=== PATIENT | female | born 1930 | race Caucasian/White ===

== ENCOUNTER 2017-03-24 21:57 | Inpatient (IN) | payer MEDICARE, OTHER ==
[~2017-03-24] VITALS: Ht 167.6 cm; Wt 64.4 kg
[2017-03-24] MEDS ORDERED: LEVOTHYROXINE25 MCG PO (22:25)
[2017-03-24] MEDS ORDERED: BUPROPION XL150 MG PO (22:26)
[2017-03-24] MEDS ORDERED: ESCITALOPRAM OXA5 MG PO (22:26)
[2017-03-24] MEDS ORDERED: TRIMETHOPRIM100 MG PO (22:26)
[2017-03-24] MEDS ORDERED: PROPRANOLOL HCL80 MG PO (22:27)
[2017-03-24] MEDS ORDERED: ROSUVASTATIN CAL5 MG PO (22:27)
[2017-03-24] MEDS ORDERED: DICLOFENAC SOD100 G1 TOP (22:28)
[2017-03-24] MEDS ORDERED: RANITIDINE HCL75 MG PO (22:29)
--- NOTE | 2017-03-25 01:10 | NUR ---
PT ARRIVED TO TO RM #[id number] VIA STRETCHER FROM ED. TRANSFERRED TO BED. INCONTIENT OF STOOL. ATTENDS CHANGED, BARRIER CREAM APPLIED TO TESSA AREA, BUTTOCKS AND RASH ON LOWER ABD. LARGE AMOUNT OF LIQUID BROWN/GREEN STOOL NOTED. ADMISSION AND ASSESSMENT COMPLETE. PT POOR HISTORIAN DUE TO DEMENTIA AND ALTERED MENTAL STATUS. GENERALIZED WEAKNESS NOTED. NO FURTHER NEEDS AT THIS TIME. CALL LIGHT EDUCATION DONE. CALL LIGHT IN REACH.
--- NOTE | 2017-03-25 03:42 | NUR ---
IN TO CHECK ON PT, PT APPEARS TO BE SLEEPING. IVF INFUSING. NO APPARENT DISTRESS NOTED. RR EVEN AND UNLABORED. CALL LIGHT IN REACH.
--- NOTE | 2017-03-25 05:00 | NUR ---
DR. PALACIOS IN TO SEE PT. NEW ORDERS GIVEN. PT INCONTIENT OF MEDIUM LIQUID STOOL. STOOL SAMPLE COLLECTED AND SENT TO LAB. ATTENDS CHANGED. NOTED A DIME SIZED BLANCHABLE ULER ON COCCYX. BARRIER CREAM APPLIED. ATTENDS CHANGED. NO FURTHER NEEDS AT THIS TIME. CALL LIGHT IN REACH.
--- NOTE | 2017-03-25 09:30 | NUR ---
PT AWAKE IN BED. BOOSTED AND REPOSITIONED TO BACK. PT ASSISTED TO EAT BREAKFAST DUE TO CONTRATURED HANDS. PT ATE APPROX 25% OF SOFT BREAKFAST. ORIENTED TO SELF. REQUIRES REORIENTATION TO SITUATION FREQUENTLY. CALL LIGHT WITHIN REACH. PLACED IN POSITION OF COMFORT AFTER EATING.
--- NOTE | 2017-03-25 10:30 | NUR ---
PT IS SITTING UP IN BED WITH CALL LIGHT IN REACH. PT WAS INCONTIENT OF URINE AND WAS CHANGED. PT'S HANDS AND FACE WERE CLEANED WITH A WARM WASH CLOTH. PT DID NOT NEED ANYTHING ELSE
--- NOTE | 2017-03-25 11:30 | NUR ---
PT INCONTINENT OF LIQUID STOOL. ATTENDS CHANGED, PT CLEANED THOROUGHLY. BARRIER CREAM APPLIED TO TESSA AREA. PT REPOSITIONED TO LEFT SIDE. CALL LIGHT WITHIN REACH.
--- NOTE | 2017-03-25 14:30 | NUR ---
PT IS RESTING IN BED SAFELY WITH CALL LIGHT IN REACH. PT WAS INCONTINENT OF STOOL AND WAS CHANGED
--- NOTE | 2017-03-25 14:30 | NUR ---
PT INCONTINENT OF LIQUID STOOL. ATTENDS CHANGED. PT REPOSITIONED IN BED.
--- NOTE | 2017-03-25 16:09 | NUR ---
PT AWAKE IN BED VISITING WITH DAUGHTER. ATTENDS CHANGED AND REPOSITIONED IN BED. CALL LIGHT WITHIN REACH. PT REMAINS ORIENTED TO SELF AND DAUGHTER ONLY.
--- NOTE | 2017-03-25 17:45 | NUR ---
PT INCONTINENT OF LIQID STOOL. STOOL SAMPLE OBTAINED. PT CLEANED THOROUGHLY, BARRIER CREAM APPLIED TO TESSA AREA. PT ASSISTED TO EAT DINNER, ONLY ATE A FEW BITES. PT REPOSITIONED. CALL LIGHT WITHIN REACH.
--- NOTE | 2017-03-25 18:44 | NUR ---
PT IS SITTING UP IN BED WITH CALL LIGHT IN REACH. PT ASKED FOR MORE CRANBERRY JUICE
--- NOTE | 2017-03-25 19:05 | NUR ---
BEDSIDE REPORT RECEIVED FROM OFFGOING NURSE. PT RESTING IN BED WITH EYES CLOSED
--- NOTE | 2017-03-25 21:32 | NUR ---
PT ASSESSMENT COMPLETED. PT DENIES PAIN OR NAUSEA. DISORIENTED X 4. ATTENDS IN PLACE. PT TO BE CHANGED AND TURNED. ASSISTED PT WITH A DRINK OF WATER. WARM BLANKET PROVIDED. PT DENIES OTHER NEEDS. CALL LIGHT WITHIN REACH.
--- NOTE | 2017-03-25 22:00 | NUR ---
PT LYING IN BED AWAKE. REPORTS THAT SHE IS HUNGRY. PT ATE 2-3 BITES OF [place] AND CHEESE, STATES THAT SHE IS NO LONGER HUNGRY. PT DENIES OTHER NEEDS AT THIS TIME. CALL LIGHT WITHIN REACH.
--- NOTE | 2017-03-26 00:05 | NUR ---
PT RESTING IN BED WITH EYES CLOSED. RESPIRATIONS EVEN AND UNLABORED. PT APPEARS TO BE SLEEPING. PT DOES NOT WAKE WHEN SPECIAL EFFECTS TECHNICIAN ENTERS ROOM. CALL LIGHT WITHIN REACH.
--- NOTE | 2017-03-26 02:30 | NUR ---
PT RESTING IN BED WITH EYES CLOSED. RESPIRATIONS EVEN AND UNLABORED. PT APPEARS TO BE SLEEPING. CALL LIGHT WITHIN REACH.
--- NOTE | 2017-03-26 03:26 | NUR ---
PT ASSESSMENT COMPLETE. PT RESTING WITH EYES CLOSED. WAKES EASILY BUT DOES NOT OPEN HER EYES. ABD REMAINS SLIGHTLY DISTENDED, NO TENDERNESS TO PALPATION. BT'S ACTIVE. PT REPOSITIONED TO L SIDE AND PROPPED WITH PILLOW. CALL LIGHT WITHIN REACH.
--- NOTE | 2017-03-26 05:45 | NUR ---
PT'S ATTENDS CHANGED. PT REPOSITIONED TO R SIDE AND PROPPED WITH PILLOW. PT TOLERATED WELL. DENIES FURTHER NEEDS. CALL LIGHT WITHIN REACH.
--- NOTE | 2017-03-26 06:38 | NUR ---
PT SLEPT MAJORITY OF SHIFT. NO CO PAIN, NAUSEA, SOB. BT'S ACTIVE. ABD NOT TENDER TO PALPATION THIS SHIFT. PT CONTINUES TO HAVE LOOSE STOOL, X 2 THIS SHIFT. INCONTINENT OF BLADDER AND BOWEL, ATTENDS IN PLACE. BARRIER CREAM/WIPES FOR TESSA AREA AND BUTTOCK REDNESS. PT BEDBOUND. TURN Q 2. ASSIST WITH FEEDING. FIELD START REMAINS IN PLACE. D5LR@ 100.
--- NOTE | 2017-03-26 07:54 | NUR ---
REPORT RECIEVED FROM KATIE SIMMONS. PT ASLEEP IN BED ATT.
--- NOTE | 2017-03-26 09:45 | NUR ---
CARE ASSUMED OF PT, RECIEVED FACE TO FACE REPORT FROM CARLITO Camargo R.N. PT RESTING IN BED ON LEFT SIDE. ASSISTED PT TO TAKE A FEW BITES OF BREAKFAST. PT ORIENTED TO SELF ONLY. DENIES PAIN, NAUSEA, OR OTHER CONCERNS. ATTENDS CLEAN AND DRY AT THIS TIME. ASSISTED PT TO DRINK SOME ORANGE JUICE AND WATER. CALL LIGHT WITHIN REACH ALTHOUGH PT DOES NOT USE CALL BUTTON APPROPRIATELY. BED RAILS UP, BED IN LOWEST POSITION.
--- NOTE | 2017-03-26 10:30 | NUR ---
FIELD START IV DUE FOR ROUTINE ROTATION AND LEAKING. IV DC'D. NEW 22G IV STARTED IN RIGHT FOREARM. IV FLUIDS INFUSING WELL. PT INCONTINENT OF BOWEL AND BLADDER. ATTENDS AND LINENS CHANGED. BARRIER CREAM APPLIED TO TESSA AREA. AM CARES COMPLETED. FACE WASHED, DENTURE AND ORAL CARE DONE, BED BATH. PT REPOSITIONED TO LEFT SIDE. HEEL PROTECTORS IN PLACE.
[2017-03-26] MEDS ORDERED: OMEPRAZOLE20 MG PO (11:15)
[2017-03-26] MEDS ORDERED: RANITIDINE HCL150 MG PO (11:17)
--- NOTE | 2017-03-26 11:18 | NUR ---
MED REC COMPLETE WITH [facility] REFILL HISTORY.
--- NOTE | 2017-03-26 12:05 | NUR ---
PT REPOSITINED AND ATTENDS CHANGED. INCONTINENT OF SMALL SOFT STOOL. PT GIVEN SIPS OF WATER. IV INFUSING WNL.
--- NOTE | 2017-03-26 12:54 | NUR ---
PT SITTING UP IN BED. TRAY SET UP FOR PT AND PT ABLE TO EAT INDPENDENTLY. PT HAS LIMITED APPETITE AND ONLY EATS A FEW BITES OF EACH MEAL. GIVEN ENSURE.
--- NOTE | 2017-03-26 14:15 | NUR ---
PT ATTENDS CHANGED. PT INCONTINENT OF URINE AND HAD SMALL SMEAR OF SOFT BROWN STOOL. PT REPOSITIONED TO RIGHT SIDE. PT GIVEN SIPS OF WATER.
--- NOTE | 2017-03-26 15:34 | NUR ---
PATIENT AWAKE IN BED. AM CARE. PICKED UP ROOM. EMPTYED GARBAGE. CHANGED GOWN. CHANGED HER ATTEND. CHANGED CHUK AND DRAW SHEET. PATIENT HAS CALL LIGHT IN REACH.
--- NOTE | 2017-03-26 16:30 | NUR ---
PT AWAKE IN BED. ATTENDS CHANGED. PT REPOSITINED. HAIR SHAMPOOED AND FACE WASHED.
--- NOTE | 2017-03-26 17:42 | NUR ---
ASSISTED PT TO EAT A SMALL AMOUNT OF DINNER. ORAL CARE COMPLETED.
--- NOTE | 2017-03-26 18:58 | NUR ---
ATTENDS CHANGED. PT REPOSITIONED.
--- NOTE | 2017-03-26 19:10 | NUR ---
BEDSIDE REPORT RECEIVED FROM OFFGOING RN. PT RESTING WITH EYES CLOSED. CALL LIGHT WITHIN REACH.
--- NOTE | 2017-03-26 20:40 | NUR ---
PT ASSESSMENT COMPLETE. PT DISORIENTED X 3. PLEASANTLY CONFUSED. PT DENIES PAIN OR NAUSEA. BT'S ACTIVE. PT DENIES ABD TENDERNESS. ATTENDS IN PLACE FOR INCONTINENCE. HEEL PROTECTORS PRESENT. PT DENIES NEEDS AT THIS TIME. CALL LIGHT WITHIN REACH.
--- NOTE | 2017-03-26 23:25 | NUR ---
PUT PILLOW ON HER LEFT SIDE. CLEANED UP THE TABLE. REFILLED ICE WATER. CALL LIGHT WITHIN REACH.
--- NOTE | 2017-03-27 00:45 | NUR ---
PT RESTING IN BED WITH EYES CLOSED. RESPIRATIONS EVEN AND UNLABORED. PT APPEARS TO BE SLEEPING. CALL LIGHT WITHIN REACH.
--- NOTE | 2017-03-27 02:05 | NUR ---
PT RESTING IN BED WITH EYES CLOSED. RESPIRATIONS EVEN AND UNLABORED. PT DOES NOT WAKE WHEN SALES DEVELOPMENT COORDINATOR ENTERS THE ROOM. CALL LIGHT WITHIN REACH.
--- NOTE | 2017-03-27 02:55 | NUR ---
PT ASSESSMENT COMPLETE. UNCHANGED FROM PREVIOUS ASSESSMENTS. PT REPOSITIONED AND PROPPED WITH PILLOWS; TOLERATED WELL. PT DENIES FURTHER NEEDS. CALL LIGHT WITHIN REACH.
--- NOTE | 2017-03-27 05:15 | NUR ---
PT RESTING WITH EYES CLOSED. RESPIRATIONS EVEN AND UNLABORED. PT APPEARS TO BE SLEEPING. CALL LIGHT WITHIN REACH.
--- NOTE | 2017-03-27 05:28 | NUR ---
PT SLEPT MAJORITY OF SHIFT. NO C/O PAIN. NO ABD TENDERNESS. BT'S ACTIVE. INCONTINENT OF BLADDER AND BOWEL. ATTENDS IN PLACE. TURN Q 2. TESSA AREA REDNESS, APPLY BARRIER CREAM/WIPES. BEDBOUND. CONTRACTURES, ASSIST WITH FEEDING. IV SL EXCEPT ABX.
--- NOTE | 2017-03-27 07:29 | NUR ---
BEDSIDE REPORT RECEIVED FROM IRIS WILSON. PT AWAKE SITTING UP IN BED. COFFEE PROVIDED TO PT PER REQUEST. WHITEBOARD UPDATED. CEFEPIME INFUSING NOW. WILL S/L WHEN COMPLETE. NO COMPLAINTS THIS MORNING.
--- NOTE | 2017-03-27 10:56 | NUR ---
NURSE AND I CHANGED THE PATIENT AND REPOSITION ON BACK.
--- NOTE | 2017-03-27 13:18 | NUR ---
PT ABLE TO EAT MEAL INDEPENDENTLY AFTER BEING SET UP WITH FOOD CHOPPED AND IN REACH. ATE 80% OF LUNCH. ABX INFUSING NOW.
--- NOTE | 2017-03-27 15:18 | NUR ---
ALBERT AND I TURNED PATIENT ON LEFT SIDE AT 3:15PM. ALBERT ALSO DID THE BED BATH AND CHANGED HER.
--- NOTE | 2017-03-27 15:32 | NUR ---
PT AWAKE IN BED. CHANGED AND GAVE A BEDBATH. FRESH ICE WATER AND COFFEE. LINEN CHANGE.
--- NOTE | 2017-03-27 18:00 | NUR ---
PULL PATIENT UP IN BED. PROPED HER STRAIGHT UP IN BED. ASSISTED PATIENT WITH DINNER. WASHED PATIENT'S FACE. CALL BUTTON IN REACH. PROCEDURE TECH IN ROOM.
--- NOTE | 2017-03-27 18:33 | NUR ---
TURN Q2. CEFEPIME. SWING BED 7 DAYS FOR ABX. INCONTINENT. SOFT STOOL. NEEDS HELP WITH FEEDING.
--- NOTE | 2017-03-27 19:20 | NUR ---
BEDSIDE REPORT RECEIVED FROM OFFGOING RN. PT BEING CHANGED AND REPOSITIONED BY BUSINESS DEVELOPMENT RECRUITER'S.
--- NOTE | 2017-03-27 21:19 | NUR ---
PT ASSESSMENT COMPLETE. PT DENIES PAIN, NAUSEA, OR SOB. LUNG SOUNDS CLEAR. BT'S ACTIVE, NO C/O ABD TENDERNESS. ATTENDS IN PLACE FOR CHRONIC INCONTINENCE. PT REMAINS PLEASANTLY CONFUSED, ORIENTED TO SELF ONLY. PT DENIES NEEDS AT THIS TIME. CALL LIGHT WITHIN REACH.
--- NOTE | 2017-03-27 23:55 | NUR ---
PT RESTING WITH EYES CLOSED, RESPIRATIONS EVEN AND UNLABORED. PT APPEARS TO BE SLEEPING. CALL LIGHT WITHIN REACH.
--- NOTE | 2017-03-28 02:10 | NUR ---
PT RESTING WITH EYES CLOSED. WAKES EASILY. REPOSITIONED TO L SIDE, PROPPED WITH PILLOW. PT FALLS BACK TO SLEEP EASILY.
--- NOTE | 2017-03-28 04:34 | NUR ---
PT RESTING IN BED WITH EYES CLOSED, WAKES EASILY. PT TURNED TO OPPOSITE SIDE AND PROPPED WITH PILLOW. TOLERATED WELL. PT FALLS BACK TO SLEEP EASILY. CALL LIGHT WITHIN REACH.
--- NOTE | 2017-03-28 04:58 | NUR ---
UNEVENTFUL SHIFT. BEDBOUND, TURN Q 2. INCONTINENT OF BLADDER AND BOWEL. ATTENDS IN PLACE. SOFT STOOLS. BARRIER CREAM/WIPES TO TESSA AREA. ASSIST WITH FEEDING. IV SL.
== END 2017-03-28 12:40 | disposition swing bed (61) | DRG 689 ==
LOC: ED 21:57 → MS 21:58
PROVIDERS: ADMIT Internal Medicine
DX: N39.0 Urinary tract infection, site not specified (principal); G93.41 Metabolic encephalopathy; F02.81 Dementia in other diseases classified elsewhere, unspecified severity, with behavioral disturbance; I69.351 Hemiplegia and hemiparesis following cerebral infarction affecting right dominant side; B96.20 Unspecified Escherichia coli [E. coli] as the cause of diseases classified elsewhere; E86.0 Dehydration; I48.0 Paroxysmal atrial fibrillation; I12.9 Hypertensive chronic kidney disease with stage 1 through stage 4 chronic kidney disease, or unspecified chronic kidney disease; N18.3 Chronic kidney disease, stage 3 (moderate); Z87.440 Personal history of urinary (tract) infections; E78.5 Hyperlipidemia, unspecified; E03.9 Hypothyroidism, unspecified; R73.03 Prediabetes; G25.0 Essential tremor; Z66 Do not resuscitate; K52.9 Noninfective gastroenteritis and colitis, unspecified; G31.83 Neurocognitive disorder with Lewy bodies; Z99.3 Dependence on wheelchair
CPT/HCPCS: 36415; 80053; 81001; 83735; 83993; 84133; 84302; 85025; 85651; 86140; 87045; 87046; 87077; 87088; 87147; 87177; 87186; 87205; 87209; 87493; 92610; 97162; 97165; J0692; J0696; J1650; J2270; J2405; J3475; J7030; J7040; J7120

== ENCOUNTER 2017-03-28 12:40 | Inpatient (IN) | payer MEDICARE, OTHER ==
[~2017-03-28] VITALS: Ht 167.6 cm; Wt 67.9 kg
[~2017-03-28 12:40] MED LIST: BUPROPION XL150 MG PO; DICLOFENAC SOD100 G1 TOP; ESCITALOPRAM OXA5 MG PO; LEVOTHYROXINE25 MCG PO; OMEPRAZOLE20 MG PO; PROPRANOLOL HCL80 MG PO; RANITIDINE HCL150 MG PO; RANITIDINE HCL75 MG PO; ROSUVASTATIN CAL5 MG PO; TRIMETHOPRIM100 MG PO
--- NOTE | 2017-03-28 17:22 | NUR ---
UNEVENTFUL DAY. CHANGED STATUS TO SWING BED. TURN Q2. WATCH COCCYX FOR BREAKDOWN. INCONTINENT. SEVERAL BMs TODAY. CEFEPIME FOR ECOLI IN UTI. SALINE LOCK.
--- NOTE | 2017-03-28 18:41 | NUR ---
GAVE BED BATH AND SHAMPOOED HAIR. TURNING HER EVERY 2HRS.
--- NOTE | 2017-03-28 19:20 | NUR ---
PT RESTING IN BED WITH EYES OPEN. PT REMAINS PLEASANTLY CONFUSED. DENIES NEEDS AT THIS TIME. CALL LIGHT WITHIN REACH.
--- NOTE | 2017-03-28 20:44 | NUR ---
PATIENT VERY DISORIENTED. SHE STATES THAT NO ONE HAS COME TO SEE HER FOR 16 HOURS. I GOT HER FRESH ICE WATER AND WARM BLANKETS. PATIENT DID NOT NEED CHANGED AT THIS TIME.
--- NOTE | 2017-03-28 23:26 | NUR ---
PT ASSESSMENT COMPLETE. PT DISORIENTED X4. PLEASANTLY CONFUSED. REPORTS THAT HER DAUGHTER HAS NOT COME TO SEE HER, EVEN THOUGH SHE PROMISED SHE WOULD. PT DENIES PAIN. STATES THAT SHE WOULD LIKE TO STAY UP AND WATCH TV FOR A WHILE. DENIES NEEDS AT THIS TIME. CALL LIGHT WITHIN REACH.
--- NOTE | 2017-03-29 01:54 | NUR ---
PATIENT IN BED SLEEPING
--- NOTE | 2017-03-29 03:11 | NUR ---
PT REPOSITIONED TO L SIDE AND PROPPED WITH PILLOW. PT TOLERATED WELL.
--- NOTE | 2017-03-29 04:49 | NUR ---
UNEVENTFUL SHIFT. PT SLEPT MAJORITY OF SHIFT. TURN Q 2 WHILE IN BED. APPLY BARRIER CRAM TO TESSA AREA. PT INCONTINENT OF BLADDER AND BOWEL, ATTENDS IN PLACE. PT CONTINUES TO HAVE SOFT STOOL. ORDER FOR PT TO BE UP IN CHAIR BID. IV SL. 2 PA.
--- NOTE | 2017-03-29 06:15 | NUR ---
PT RESTING WITH EYES CLOSED, WAKES EASILY. REMAINS DROWSY. PT TURNED AND REPOSITIONED. PT TOLERATED WELL.
--- NOTE | 2017-03-29 07:30 | NUR ---
RECIEVED REPORT FROM DAY SHIFT NURSE. PT RESTING IN BED. PT DENIES NEEDS. CALL CHAVEZ IN REACH.
--- NOTE | 2017-03-29 09:00 | NUR ---
PATIENT AWAKE IN BED. AM CARE CHANGED SHEETS AND GOWN. BED BATH. FRESH ICE WATER AND COFFEE. EMPTYED GARBAGE. PICKED UP ROOM.
--- NOTE | 2017-03-29 10:34 | NUR ---
PT SITTING UP IN BED. STATES SHE FEEL NAUSEOUS. ZOFRAN ADMINISTERED. PT STATES SHE ATE A BIG BREAKFAST. #22 IN L ARM LEAKING. IV SITE REMOVED.
--- NOTE | 2017-03-29 11:00 | NUR ---
PT RESTING IN BED. AT BEDSIDE. PT DENIES DIZZINESS. STATES HER PAIN IS TOLERABLE. DENIES NEEDS. CALL CHAVEZ IN REACH.
--- NOTE | 2017-03-29 12:18 | NUR ---
MED REC COMPLETE WITH [facility] REFILL HSITORY.
--- NOTE | 2017-03-29 12:45 | NUR ---
ORDERED LUNCH FOR PT. REPOSITIONED. CHECKED FOR EPISODE OF INCONT.
--- NOTE | 2017-03-29 14:35 | NUR ---
PT AWAKE IN BED. TOOK LUNCH TRAY. CHANGED GOWN.
--- NOTE | 2017-03-29 15:00 | NUR ---
PT RESTING IN BED. DENIES NEEDS. CALL CHAVEZ IN REACH.
--- NOTE | 2017-03-29 17:00 | NUR ---
REPOSITIONED PT ON R SIDE. CHANGED PT FOR INCONT. DENIES NEEDS. CALL CHAVEZ IN REACH.
--- NOTE | 2017-03-29 17:14 | NUR ---
PICC/MIDLINE INSERTION NOTE ASKED BY DR. PALACIOS TO EVALUATE PATIENT FOR A POTENTIAL MIDLINE/PICC PLACEMENT. AFTER REVIEWING THE CHART AND INTERVIEWING THE PATIENT, NO ABSOLUTE CONTRAINDICATIONS TO MIDLINE WERE FOUND. PT DOES HAVE DEMENTIA AND UNABLE TO PROVIDE AN INFORMED CONSENT. HER DAUGHTER JAIDA WAS CALLED AND THIS WAS DISCUSSED WITH HER AT LENGTH, AND VERBAL CONSENT OVER THE PHONE WAS OBTAINED. PATIENT'S ARM WAS THEN EVALUATED USING THE SITE [employer] U/S MACHINE. PATIENT WAS NOTED TO HAVE A GREATER THAN 8 FR BY U/S BASILIC VEIN, WELL A CEPHALIC VEIN THAT ALSO LOOKED TO BE A POTENTIAL MIDLINE SITE. CDC RECOMMENDED QUALITY MEASURES WERE USED TO STERILIZE AND PREP THE PATIENT'S ARM. IV ACCESS WAS OBTAINED IN THE BASILIC VEIN WITHOUT DIFFICULTY, AND NO DIFFICULTY WAS HAD WITH THREADING THE GUIDEWIRE, THE INTRODUCER, OR PLACMENT OF THE MIDLINE. PATIENT TOLERATED PROCEDURE WELL. PATIENT WAS ENCOURAGED TO ASK QUESTIONS IF SHE HAD ANY REGARDING HER MIDLINE CATHETER. REPORT GIVEN TO THE RN CARING FOR THIS PATIENT.
--- NOTE | 2017-03-29 18:16 | NUR ---
ORDERED PT DINNER. PT RESTING IN BED. DENIES NEEDS. ABX INFUSING IN PICC. CALL CHAVEZ IN REACH.
--- NOTE | 2017-03-29 19:42 | NUR ---
PATIENT SITTING UP IN BED, PLEASANTLY CONFUSED. WHITEBOARD UPDATED, ROOM TIDIED.
--- NOTE | 2017-03-29 20:00 | NUR ---
RECEIVED REPORT AT 1900. FOUND PT IN BED PLEASANTLY CONFUSED EATING HER DINNER. AT AROUND 2014 I GOT REPORT FROM PLUMBER MAINTENANCE ABOUT PT HITTING HER AND REFUSING V/S. I WENT INTO THE ROOM AND PT WAS VERY AGITATED AND AGRESSIVE TOWARD STAFF. PT SAID: "GET THE HELL OUT OF HERE". PT CONTINUED TO REFUSE V/S. MD PALACIOS WAS CALLED ABOUT THE CHANGE IN BEHAVIOR. HE STATED TO CONTINUE TO MONITOR THIS PT.
--- NOTE | 2017-03-29 20:20 | NUR ---
PATIENT IS ESPECIALLY CONFUSED RIGHT NOW. BECOMING AGGRESSIVE. HIT AND KICKED WHILE TRYING TO CHANGE HER DEPEND. REFUSED TO GET VITAL SIGNS TAKEN. PUT SEIZURE PADS ON THE SIDE OF BED.
--- NOTE | 2017-03-29 20:27 | NUR ---
PT CONFUSED AT THIS TIME. REFUSED VITAL SIGNS. AGGRESSIVE WITH NURSING STAFF, SWEARING, AND YELLING OUT. "YOU PEOPLE ARE SICK, HOW COULD YOU DO THAT TO HER." "GET OUT OF MY HOUSE." PT DOES NOT RE-ORIENT. ORIENTED TO SELF ONLY. ATTEMPTING TO GET OUT OF BED WITHOUT ASSISTENCE, BED RAILS UP, BED ALARM ACITIVATED.
--- NOTE | 2017-03-29 21:52 | NUR ---
PT REFUSED ASSESSMENT. I WAS ABLE TO START HER IV CEFAPIME WHILE DISTRACTING HER. WHEN I STARTED MY ASSESSMENT PT TOLD ME AGAIN "GET THE HELL OUT" PT IS ONLY ORIENTED TO SELF AND IS UNWILLING TO FOLLOW INSTRUCTIONS.
--- NOTE | 2017-03-29 23:57 | NUR ---
PT IS SLEEPING AT THIS TIME.
--- NOTE | 2017-03-29 23:58 | NUR ---
PATIENT SLEEPING, NURSE IN ROOM.
--- NOTE | 2017-03-30 02:11 | NUR ---
PT IS SLEEPING AT THIS TIME. PT NEEDS TO BE CHANGED.
--- NOTE | 2017-03-30 02:47 | NUR ---
PT WAS CHANGED AND RE-POSITIONED. V/S WERE DONE. PT IS MUCH MORE COOPERATIVE AT THIS TIME. V/S ARE WDL.
--- NOTE | 2017-03-30 04:41 | NUR ---
PT IS SLEEPING.
--- NOTE | 2017-03-30 05:23 | NUR ---
AT START OF SHIFT PT REFUSED V/S AND THE SHIFT ASSESSMENT. PT DEMANDED THAT WE LEAVE HER ROOM. AT AROUND 0200 PT LET US TAKE HER V/S AND WAS MORE COOPERATIVE OVERALL. V/S WERE WDL. PO INTAKE WAS ENCOURAGED. BED ALARM HAS BEEN ON. PT IS ONLY ORIENTED TO SELF AT BEST WHICH SEEMS TO BE HER BASELINE. OVERALL PT HAS BEEN SLEEPING MOST OF THE NIGHT.
--- NOTE | 2017-03-30 07:25 | NUR ---
RECIEVED REPORT FROM DAY SHIFT NURSE. PT SLEEPING. PADS ON RAILS. CALL CHAVEZ IN REACH.
--- NOTE | 2017-03-30 09:30 | NUR ---
PT INCONT OF URINE. PERICARE PERFORMED, BRIEF CHANGED, DRAW SHEET/PAD CHANGED. BARRIER CREAM APPLIED. REPOSITIONED PT TO R SIDE. WASHED HANDS-PLACED TOWEL IN L HAND DUE TO CONTRACTURES. ASSISTED PT WITH MEAL SET UP. PT DENIES FURTHER NEEDS. CALL CHAVEZ IN REACH.
--- NOTE | 2017-03-30 10:40 | NUR ---
MEAL TRAY REMOVED. PT ATE 100%. DENIES NEEDS. CALL CHAVEZ IN REACH.
--- NOTE | 2017-03-30 14:20 | NUR ---
PT RESTING, EATING LUNCH. DAUGHTER AT BEDSIDE TALKING WITH NURSE GENERAL DUTY. PT AND FAMILY DENY NEEDS AT THIS TIME.
--- NOTE | 2017-03-30 15:58 | NUR ---
REPOSITIONED PT ON L SIDE. CHANGED PT FOR INCONT. PLACED TOWELS IN CONTRACTED HANDS. PT DENIES NEEDS. CALL CHAVEZ IN REACH.
--- NOTE | 2017-03-30 17:31 | NUR ---
REPOSITIONED PT ON L SIDE. CHECKED FOR EPISODE OF INCONT., FOUND DRY. ABX INFUSING. ORDERED PT DINNER. PT DENIES FURTHER NEEDS. CALL CHAVEZ IN REACH.
--- NOTE | 2017-03-30 18:30 | NUR ---
NOTICED BLEEDING FROM PICC INSERTION SITE. CONTACTED CELLOPHANE WORKER WHO CAME UP AND ASSESSED. CELLOPHANE WORKER TEXTED PICC LINE WHEEL WORKER ABOUT BLEEDING. ABLE TO FLUSH AND DRAW BACK BLOOD.
--- NOTE | 2017-03-30 19:15 | NUR ---
SHIFT REPORT RECIEVED AT BEDSIDE. PATIENT SITTING UP IN BED EATING DINNER. PATIENT DENIES NEEDS AT THIS TIME. CALL LIGHT IN REACH.
--- NOTE | 2017-03-30 21:00 | NUR ---
PATIENT ASSESSMENT COMPLETED AND DOCUMENTED. PATIENT IS ALERT TO SELF ONLY. SPEECH IS INAPPROPRIATE AT TIMES AND PATIENT APPEARS TO BE HAVING HALLUCINATIONS, REPORTING SMALL CHILDERN IN HER ROOM. PATIENT HAS EXPIRTORY WHEEZE THROUGHOUT. BOWEL SOUNDS ACTIVE. ABD SOFT, ROUND, NONTENDER. HEEL PROTECTORS ARE IN PLACE. PATIENT TURNED TO RIGHT SIDE. TESSA CARE PERFORMED, PATIENT INCONTINENT AT BASELINE. PATIENT REQUESTED SOUP WHICH WAS GIVEN TO HER. EVENING MEDS WERE GIVEN PER ORDER. MIDLINE IN RIGHT UPPER ARM PULLED BACK BLOOD AND FLUSHED WELL. SOME OLD BLOOD IS VISIBLE UNDER THE DRESSING. WILL CONTINUE TO ASSESS. BED ALARM ON. CALL LIGHT IN PLACE.
--- NOTE | 2017-03-30 22:48 | NUR ---
PATIENT RESTING IN BED. DENIES NEEDS AT THIS TIME. CALL LIGHT IN REACH. BED ALARM ON.
--- NOTE | 2017-03-31 00:05 | NUR ---
PATIENT RESTING IN BED. EYES CLOSED. HOB ELEVATED. PATIENT TURNED TO RIGHT SIDE. CALL LIGHT IN REACH. BED ALARM ON.
--- NOTE | 2017-03-31 02:17 | NUR ---
PATIENT RESTING IN BED. EYES CLOSED. RR 16. CALL LIGHT IN REACH.
--- NOTE | 2017-03-31 03:25 | NUR ---
PATIENT REPOSITIONED TO LEFT SIDE. TESSA CARE PERFORMED. PATIENT DENEIES NEEDS AT THIS TIME. CALL LIGHT IN REACH. BED ALARM ON.
--- NOTE | 2017-03-31 05:06 | NUR ---
PATIENT RESTED WELL THROUGHOUT SHIFT. ONLY ORIENTED TO SELF. MID LINE IN RIGHT UPPER ARM, FLUSHES WELL & PULLS BACK BLOOD. HEPA-LOCKED. BED BOUND. 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 CHOPPED DIET, NEEDS ASSISTED WITH MEALS. INCONTINENT. TURN Q2H. DENIES PAIN. BED ALARM ON. HAS NOT USED CALL LIGHT DURING SHIFT.
--- NOTE | 2017-03-31 06:47 | NUR ---
MORNING MEDS GIVEN PER ORDER. PATIENT IS DROWSY AND REQUIRED CONSTANT REMINDING TO TAKE PO MEDS AND SWALLOW WATER. PATIENT TURNED TO RIGHT SIDE. NO TESSA CARE REQUIRED AT THIS TIME. HOB ELEVATED >45 DEGREES. NO REQUEST AT THIS TIME.
--- NOTE | 2017-03-31 09:00 | NUR ---
PATIENT RESTING IN BED. PROVIDED PATIENT WITH BREAKFAST AND MORNING MEDICATIONS. DISCUSSED TRANSFERING TO [facility]. PATIENT APPEARS APPREHENSIVE TO GET UP, AGREED TO TRY A "LITTLE LATER" WILL REAPPROACH.
--- NOTE | 2017-03-31 11:05 | NUR ---
ASSISTED THE NURSE WITH A TWO PERSON TRANSFER VIA [employer] LIFT FROM THE BED TO THE CHAIR. PT IS NOW SITTING UP IN CHAIR WITH CALL LIGHT IN REACH. PT'S HAIR WAS WASHED WITH A RINSELESS SHAMPOO CAP, COMBED, AND STYLED. PT DID NOT NEED ANYTHING ELSE AT THE MOMENT
--- NOTE | 2017-03-31 14:30 | NUR ---
PATIENT BACK TO BED, IV ANTIBIOTIC INFUSING. PATIENT STATES " YOUR PICKING ON ME, TELL THE LITTLE KIDS TO STOP RUNNING IN THE HALLS" PATIENT APPEARS TO HAVE INCREASED DELIURIUM. PATIENT INCONTINENT OF URINE. PROVIDED PATIENT WITH WARM BLANKET AND ICECREAM.
--- NOTE | 2017-03-31 19:20 | NUR ---
SHIFT REPORT RECIEVED. HAND CLOTH CUTTER IN ROOM.
--- NOTE | 2017-03-31 22:00 | NUR ---
PATIENT REPOSITIONED ONTO LEFT SIDE. NO TESSA CARE REQUIRED AT THIS TIME. LUNG SOUNDS ARE COURSE ON EXPIRATION. HOB ELEVATED > 45 DEGRESS. BOWEL SOUNDS ACTIVE. ABD SOF, ROUND, NONTENDER. HEEL PROTECTORS IN PLACE. MID LINE DRAWS BLOOD EASILY, FLUSHED WITH 10ML NS. IV ABX STARTED PER ORDERS. SITE HAS NO NEW BLOOD UNDER DRESSING. PATIENT ORIENTED TO SELF. PATIENT PLESANT AND DENIES NEEDS AT THIS TIME. CALL LIGHT IN REACH.
--- NOTE | 2017-03-31 23:04 | NUR ---
SHIFT ASSESSMENT RECIEVED. FRESH [employer] TECHNICIAN IN ROOM PERFORMING TESSA CARE. PATIENT REPOSITIONED ONTO LEFT SIDE. CALL LIGHT IN REACH. BED ALARM ON.
--- NOTE | 2017-03-31 23:40 | NUR ---
PATIENT RESTING. EYES CLOSED. RR 16.
--- NOTE | 2017-04-01 01:27 | NUR ---
TESSA CARE PERFORMED. BARRIER CREAM APPLIED. REPOSITIONED TO LEFT SIDE. PATIENT WAS PLEASANT. DENIES PAIN. DRANK SOME WATER WHEN OFFERED. HOB ELEVATED > 45 DEGREES. CALL LIGHT IN HAND. BED ALARM ON.
--- NOTE | 2017-04-01 02:42 | NUR ---
PATIENT RESTING IN BED. EYES CLOSED. RR 18. CALL LIGHT IN REACH.
--- NOTE | 2017-04-01 04:17 | NUR ---
TESSA CARE PERFORMED. BARRIER CREAM APPLIED. REPOSITIONED TO LEFT SIDE. PATIENT DENIES NEEDS. OFFERED PATIENT WATER. HOB ELEVATED >45 DEGREES. CALL LIGHT IN REACH.
--- NOTE | 2017-04-01 04:35 | NUR ---
PATIENT RESTING WELL THROUGHOUT SHIFT. ORIENTED TO SELF ONLY. PATIENT WAS PLEASANT. TURN Q2H. TESSA CARE Q2H AND PRN. BARRIER CREAM. HEEL PROTECTORS. MIDLINE IN RIGHT UPPER ARM. DRAWS BLOOD. HEPA-LOCKED. OFFERED WATER WITH EVERY INTERACTION. HOB > 45 DEGREES. DOES NOT USE CALL LIGHT.
--- NOTE | 2017-04-01 06:00 | NUR ---
PATIENT RESTING IN BED. EYES CLOSED. RR 16. PATIENT APPEARS TO BE SHIVVERING. ROOM TEMP ADJUSTED. WARM BLANKET PROVIDED. NO TESSA CARE REQUIRED AT THIS TIME. HOB ELEVATED > 45 DEGREES. CALL LIGHT IN REACH. MORNING ABX INFUSING PER ORDER. MID LINE DRAWS BLOOD EASILY AND WAS SALINE FLUSHED WITH 10MLS PRIOR TO INFUSION.
--- NOTE | 2017-04-01 08:22 | NUR ---
PATIENT PROVIDED WITH BED BATH, AND [facility] NOW EATING BREAKFAST. APPEARS TO BE IN PLEASANT MOOD, SMILING. STATED " I THINK I SLEPT PRETTY GOOD LAST NIGHT.
--- NOTE | 2017-04-01 11:00 | NUR ---
PATIENT PUSHED IN RECLINER IN HALLS, CONVERSING WITH OTHER STAFF. PROVIDED PATIENT WITH ICECREAM, PROVIDED HAIR CARE. PATIENT APPEARS PLEASANT AT THIS TIME. NO COMPLAINTS OF PAIN.
--- NOTE | 2017-04-01 18:32 | NUR ---
PATIENT UP FOR MEALS THROUGHOUT DAY, TOLERATING WELL. EATING MOST OF MEALS, AND DRINKING WELL. PROVIDED PATIENT WITH ACTIVITY. SATURATED ATTENDS THROUGHOUT DAY, PROVIDED NEW ONES. 2 PERSON CHOLO TO BED AND RECLINER, TOLERATES WELL. IV ANTIBIOTICS INFUSED, TOLERATED WELL. APPEARED CALM AND COMFORTABLE THROUGHOUT DAY.
--- NOTE | 2017-04-01 19:10 | NUR ---
SHIFT REPORT RECIEVED. PATIENT UP IN CHAIR. DENIES NEEDS AT THIS TIME. CALL LIGHT IN REACH.
--- NOTE | 2017-04-01 21:17 | NUR ---
PATIENT ASSESSMENT COMPLETED. EVENING MEDS GIVEN PER ORDER. PATIENT ORIENTED TO SELF AND IN PLESANT MOOD. HAS PAIN IN HER NECK, PRN TYLENOL GIVEN AND HEAT PACK OFFERED. LUNGS ARE CLEAR, DIMINISHED IN THE BASES. ABD IS SOFT, NONTENDER, AND BOWEL SOUNDS ARE ACTIVE. HEEL PROTECTORS ON. MID LINE DRESSING INTACT, NO NEW BLOOD UNDER OB SITE. DRAWS BLOOD EASILY, AND FLUSHED WITH 10ML NS. IV ABX ADMINISTERED PER ORDER. WATER OFFERED, PATIENT REQUESTED A SODA WHICH WAS GIVEN TO HER. SHE WAS ABLE TO HOLD THE CUP INDEPENDENTLY. NO FURTHER NEEDS AT THIS TIME. CALL LIGHT IN REACH. BED ALARM ON.
--- NOTE | 2017-04-01 21:20 | NUR ---
PATIENT ASSITED TO BED A 2PA CHOLO TRANSFER. PATIENT IS NOW IN BED RESTING. PATIENTS ATTEND CHANGED. PATIENT WAS INCONTINENT OF URINE. PLACED BARRIER CREAM ON PATIENTS BACKSIDE. TESSA CARE PERFOMRED. PATIENT IS NOW POSTIONED ON HER RIGHT SIDE. PATIENT IS REQUESTING TYLENOL WITH EVENING MEDICATIONS. PATIENT DENIES ANY FURTHER NEEDS AT THIS TIME. BED ALARM ON FOR SAFETY AND CALL LIGHT IN REACH.
--- NOTE | 2017-04-02 00:18 | NUR ---
PATIENT RESTING IN BED. TESSA CARE PROVIDED. TURNED PATIENT TO LEFT SIDE AND POSITIONED FOR COMFORT. PATIENT STATES THAT SHE IS COMFORTABLE AND DENIES PAIN. CALL LIGHT IN REACH. BED ALARM ON.
--- NOTE | 2017-04-02 02:58 | NUR ---
PATIENT RESTING. EYES CLOSED. IV ABX FINISHED. MIDLINE HEPA-LOCKED. NO TESSA CARE REQUIRED AT THIS TIME. CALL LIGHT IN REACH. BED ALARM ON.
--- NOTE | 2017-04-02 04:56 | NUR ---
PATIENT RESTED WELL THORUGHOUT SHIFT. ONLY ORIENTED TO SELF. IN PLEASANT MOOD. LUNG SOUNDS CLEAR, DIMINISHED IN BASES. ABD AOFT, NONTENDER, BOWEL SOUNDS ACTIVE. PRN TYLENOL X1. TURN Q2H. REGULAR CHOPPED DIET W/ASSISTANCE. MIDLINE IN R UPPER ARM, DRAWS BLOOD AND IS HEPA-LOCKED.
--- NOTE | 2017-04-02 06:15 | NUR ---
PATIENT RESTING IN BED. DENIES PAIN AT THIS TIME. TURNED TO RIGHT SIDE. TESSA CARE PERFORMED. BARRIER CREAM APPLIED. IV ABX ADMINISTERED. MIDLINE DRAWS BLOOD EASY, FLUSHED WITH 10MLS NS. CALL LIGHT IN REACH.
--- NOTE | 2017-04-02 08:23 | NUR ---
PT AWAKE IN BED. TOOK FRESH ICE WATER AND COFFEE. PICKED UP ROOM EMTYED GARBAGE.
--- NOTE | 2017-04-02 10:17 | NUR ---
PATIENT COMPLAINING OF HEAD ACHE THIS MORNING, AND REQUESTING NOT TO MOVE. ADMINISTERED PRN TYLENOL, PATIENT UP IN BED EATING BREAKFAST. DISCUSSED POC. PATIENT REORIENTED TO TIME PLACE AND WHY PATIENT IS IN THE HOSPITAL. PATIENT APPEARS ANXIOUS, STATES " I AM SCARED I DON'T KNOW WHERE MY KIDS ARE". PROVIDED PATIENT WITH WARM BLANKET AND HOT CHOCALATE.
--- NOTE | 2017-04-02 19:10 | NUR ---
RECEIVED REPORT FROM RN. PATIENT DENIES NEEDS AT THIS TIME.
--- NOTE | 2017-04-03 00:55 | NUR ---
PATIENT IS RESTING COMFORTABLY IN BED. BREATHING IS EVEN AND UNLABORED. CALL LIGHT WITHIN REACH.
--- NOTE | 2017-04-03 03:04 | NUR ---
PATIENT IS RESTING COMFORTABLY IN BED, BREATHING IS EVEN AND UNLABORED, CURRENTLY DRINKING AN ENSURE. PATIENT DENIES NEEDS AT THIS TIME, CALL LIGHT WITHIN REACH.
--- NOTE | 2017-04-03 05:47 | NUR ---
PATIENT'S NIGHT WAS UNEVENTFUL. SHE HAS BEEN RESTING COMFORTABLY THROUGHOUT SHIFT. VSS, NO COMPLAINTS OF PAIN. NO ACUTE CHANGES FROM BEGINNING OF SHIFT ASSESSMENT.
--- NOTE | 2017-04-03 08:33 | NUR ---
PT SITTING UP IN BED EATING BREAKFAST. GAVE STRAWS FOR DRINKS TO MORE EASILY TAKE FLUIDS. CALLED DAUGHTER TO CONFIRM PATIENT HAD NOT HAD FLU VACCINE PREVIOUS TO HOSPITAL STAY. WILL ARRANGE FOR DISCHARGE AROUND 1100 PER DAUGHTER'S REQUEST. FLU VACCINE GIVEN TO PATIENT IN RIGHT ARM TODAY.
--- NOTE | 2017-04-03 10:21 | NUR ---
SPOKE WITH PATIENT IN ROOM. SHE STATES SHE WANTS TO GO HOME. DISCUSSED PROBABLE DISCHARGE TODAY. ASKED IF SHE THOUGHT SHE COULD USE HOME HEALTH SERVICES SUCH OT AND PT AT HOME. SHE STATES SHE DOESN'T THINK SHE NEEDS IT, THAT HER DAUGHTER HELPS HER ENOUGH. ATTEMPTED TO CALL PHONE NUMBER FOR DAUGHTERCINTIA. NO ANSWER, NO VOICEMAIL. ALERTED STAFF TO CALL ME WHEN DAUGHTER COMES IN.
--- NOTE | 2017-04-03 11:09 | NUR ---
BEFORE GETTING DISCHARGED I GAVE HER A BED BATH AND SHAMPOODED PATIENT HAIR.
--- NOTE | 2017-04-03 11:10 | NUR ---
SPOKE WITH DAUGHTER IN ROOM. SHE STATES PATIENTS DEMENTIA HAS GOTTEN MUCH WORSE. STATES SHE IS TAKING CARE OF HER AT HOME WITH HELP OF CAREGIVER 4-5 DAYS A WEEK. SHE STATES SHE IS CURRENTLY LOOKING TO PUT PATIENT IN A FOSTER HOME IN [facility] OR [facility]. SHE STATES SHE KNOWS IT IS BECOMING TO THE POINT THAT HER NEEDS ARE MORE THEN SHE CAN PROVIDE AT HOME. DAUGHTERS NAME IS CINTIA [id number] AND SHE IS POA. DAUGHTER STATES THE OCCUPATIONAL THERAPIST THINKS HOME HEALTH WOULD BE NEEDED TO WORK WITH PATIENTS HAND CONTRACTURES. DISCUSSED THIS WITH DR RODRIGUEZ. ORDERS WILL BE WRITTEN. PATIENT WILL BE PROVIDED A W/C [facility]AN R[facility] HOME AT DISCHARGE. STAFF AND DR RODRIGUEZ UPDATED.
--- NOTE | 2017-04-03 13:49 | NUR ---
HOME HEALTH ORDER/FACE TO FACE/CLINICALS HAND DELIVERED TO [facility].
== END 2017-04-03 11:20 | disposition home or self-care (01) | DRG 690 ==
LOC: MS 12:40
PROVIDERS: ADMIT Internal Medicine
PROC: 05H533Z Insertion of Infusion Device into Right Subclavian Vein, Percutaneous Approach (ICD-10-PCS; principal; 2017-03-29)
PROC: 3E0234Z Introduction of Serum, Toxoid and Vaccine into Muscle, Percutaneous Approach (ICD-10-PCS; 2017-04-03)
DX: N39.0 Urinary tract infection, site not specified (principal); F03.91 Unspecified dementia, unspecified severity, with behavioral disturbance; B96.20 Unspecified Escherichia coli [E. coli] as the cause of diseases classified elsewhere; I48.0 Paroxysmal atrial fibrillation; I12.9 Hypertensive chronic kidney disease with stage 1 through stage 4 chronic kidney disease, or unspecified chronic kidney disease; N18.9 Chronic kidney disease, unspecified; E78.5 Hyperlipidemia, unspecified; E03.9 Hypothyroidism, unspecified; Z23 Encounter for immunization; R25.1 Tremor, unspecified; R73.03 Prediabetes; K21.9 Gastro-esophageal reflux disease without esophagitis; Z86.73 Personal history of transient ischemic attack (TIA), and cerebral infarction without residual deficits; Z16.20 Resistance to unspecified antibiotic; Z87.898 Personal history of other specified conditions; Z87.891 Personal history of nicotine dependence
CPT/HCPCS: 36569; 90662; 94760; 97162; 97165; G0008; J0692; J1650

== ENCOUNTER 2017-04-27 22:24 | Inpatient (IN) | payer MEDICARE, OTHER ==
[~2017-04-27] VITALS: Ht 167.6 cm; Wt 62.6 kg
[2017-04-27] MEDS ORDERED: LEXAPRO5 MG PO (22:41)
[2017-04-27] MEDS ORDERED: ESSENTIAL DAIL1 EACH PO (22:42)
[2017-04-27] MEDS ORDERED: SEROQUEL50 MG PO (22:43)
[2017-04-27] MEDS ORDERED: TRIMETHOPRIM100 MG PO (23:46)
--- NOTE | 2017-04-28 03:25 | NUR ---
PATIENT IS RESTING IN BED WITH EYES CLOSED. PATIENT REMAINS ON OXYMASK TITRATED DOWN TO 2L. PULSE OX READINGS ARE WNL. CALL LIGHT IN REACH.
--- NOTE | 2017-04-28 04:11 | NUR ---
PATIENT ARRIVED TO THE FLOOR VIA STRETCHER. PATIENT TRANSFERRED TO HOSPITAL BED W/STAFF ASSISTANCE. PATIENT TOLERATED ACTIVITY WELL. PATIENT PLACED ON PULSE OX, SCDS, HEEL PROTECTORS AND OXY MASK 3L. PATIENTS ATTEND CHANGED PATIENT WAS INCONTINENT OF STOOL. PATIENT DOES NOT KNOW DATE, TIME, OR EVENT. PATIENT OREINTED TO FLOOR AND ROOM. PATIENT EDUCATED ON THE USE OF THE CALL LIGHT. PATIENT DENIES ANY PAIN OR NAUSEA. PATIENTS SIDE RAILS PLACED UP FOR SAFETY. PATIENT PLACED ON TELE #6. PATIENT IS NPO. NO FURTHER NEEDS AT THIS TIME. CALL LIGHT IN REACH.
--- NOTE | 2017-04-28 06:34 | NUR ---
PATIENTS VITALS TAKEN AND RECORDED. PATIENTS ATTEND CHANGED. PATEINT WAS INCONTINENT OF URINE. PATIENT DENIES ANY PAIN OR NAUSEA. PATIENT TOLERATED ACTIVITY WELL. PATIENT DENIES ANY NEEDS. CALL LIGHT IN REACH. RAILS UP AND BED IN LOW POSIION.
--- NOTE | 2017-04-28 07:17 | NUR ---
RECIEVED BEDSIDE REPORT FROM KATIE ESPINOZA. PT AWAKE AND ALERT, ALTHOUGH OREIENTATED ONLY TO SELF AT THIS TIME. PT COOPERATIVE WITH CARES. DISCUSSED PLAN OF CARE.
--- NOTE | 2017-04-28 08:11 | NUR ---
WASHED HER FACE.
--- NOTE | 2017-04-28 08:49 | NUR ---
ROUNDED WITH DR. DEAN. PERFORMED RECTAL EXAM, PT TOLERATED WELL. MD WILL CONTACT PT DAUGHTER TO DISCUSS.
--- NOTE | 2017-04-28 09:48 | NUR ---
FIRST SOAPSUD ENEMA COMPLETE. 1000ML IN, PT UNABLE TO HOLD FLUID IN.
--- NOTE | 2017-04-28 10:50 | NUR ---
PT HAD MODERATE RESULTS FROM FIRST SOAPSUD ENEMA. PT CLEANED UP, GOWN CHANGED. PULSE OX PROBE CHANGED BY RT D/T ARTIFACT FROM TREMORS. PT COMFORTABLE AT THIS TIME. GIVEN WATER AND APPLE JUICE PER CLEAR LIQUIDS ORDER.
--- NOTE | 2017-04-28 12:21 | NUR ---
HELPED HER EAT HER LUNCH SHE ATE ALL OF HER JELLO AND DRANK HALF HER JUICE.
--- NOTE | 2017-04-28 13:35 | NUR ---
SECOND ENEMA PLACED. PT TOLERATED WELL. STOOL APPEARS TO BE MOVING TOWARD RECTUM. 1000ML PLACED, APROX 600 RETURNED. CHANGED PADS UNDER RESIDENT. DAUGHTER AT BEDSIDE.
--- NOTE | 2017-04-28 14:22 | EKG ---
[facility] [address] [facility] [address] [place] [address] Signed Poor data quality Probable sinus rhythm Wide QRS rhythm Left axis deviation Right bundle branch block Left ventricular hypertrophy with repolarization abnormality Abnormal ECG No previous ECGs available Confirmed by DEMETRI PALACIOS MD ([id number]) on 04/28/2017 2:22:32 PM Electronically Signed By: DEMETRI APLACIOS MD 04/28/17 1422 PATIENT NAME: RENETTA BASS Electrocardiogram DATE OF : 32 PHYSICIAN: DEMETRI PALACIOS MD REPORT #: [id number] REPORT IS CONFIDENTIAL AND NOT TO BE RELEASED WITHOUT AUTHORIZATION
[2017-04-28] MEDS ORDERED: ROSUVASTATIN CAL5 MG PO (15:16)
[2017-04-28] MEDS ORDERED: INDERAL LA80 MG PO (15:17)
[2017-04-28] MEDS ORDERED: OMEPRAZOLE20 MG PO (15:21)
--- NOTE | 2017-04-28 16:05 | NUR ---
LARON AND I GOT PATIENT WIPED DOWN FOR SURGERY. CHANGED HER AND BED LINENS.
--- NOTE | 2017-04-28 16:46 | NUR ---
04/28/17 1646 Birdie Buckner report from family mediator.
--- NOTE | 2017-04-28 17:32 | NUR ---
PT RETURNED TO THE FLOOR FROM SURGERY AT 1730. PT IS SLEEPY, BUT WAKES TO VOICE AND TOUCH. PT IS MUMBLEING, SPEECH IS IMCOMPREHESIBLE. VSS. PT HAS SPLIT DRESSING AND TAPE OVER JAIDA DRAIN ON ABD. LAP SITES ARE CLEAN AND DRY WITH STERISTRIPS INTACT. PT ON 2L O2 VIA NC, CALL PLACED TO RT TO EVALUATE FOR BEST THERAPY. PT BACK ON TELE.
--- NOTE | 2017-04-28 18:08 | NUR ---
ADMINISTERED 2 SOAPSUDS ENEMAS THIS AM WITH MODERATE RESULTS. PT WENT TO SURGERY THIS AFTERNOON, RETURNED AT 1730. PT TOLERATED LAP CHARITO WELL. PT HAS SPLIT SPONGE AND TAPE AROUND JAIDA DRAIN. JAIDA DRAINING DRAINING SMALL AMT OF SEROSANGIOUS FLUID. LAP SITES ARE C/D/I WITH STERISTRIPS. PT TOLERATED ROOM AIR TRIAL WELL, MAINTAINED SATS 95-99%. PT BACK ON 2L O2 POST OP, PER RT, SHE CAN COME OFF O2 WHEN MORE AWAKE.
--- NOTE | 2017-04-28 19:10 | NUR ---
BEDSIDE SHIFT REPORT RECEIVED FROM KATIE BRAY. PT IS SLEEPING, NO APPARENT DISTRESS. RESPIRATIONS EVEN AND UNLABORED, 2L O2 VIA NC IN PLACE. IV PATENT, INFUSING D5LR @85. WILL CONTINUE TO MONITOR.
--- NOTE | 2017-04-28 20:10 | NUR ---
ASSESSMENT COMPLETED. PT REMAINS DROWSY POST-OP. NO APPARENT DISTRESS. RESPIRATIONS EVEN/UNLABORED, 2L O2 IN PLACE, LUNGS CLEAR, DIM. HR IRREGULAR, TELE#6. BOWEL TONES ACTIVE. STERI-STRIPS TO LAP SITES C/D/I. JAIDA TO RLQ DRAINING SMALL AMOUNT OF SEROSANGUINOUS FLUID, DRESSING TO SITE C/D/I. SCD'S IN PLACE. IV PATENT, D5LR @85. PT INCONTINENT OF URINE, NEW ATTENDS AND TESSA-CARE PROVIDED, RED, BLANCHABLE AREA TO COCCYX. WILL CONTINUE TO MONITOR.
--- NOTE | 2017-04-28 20:41 | HP ---
[facility] [address], [place] [address] Signed ADMISSION DATE: 04/28/2017 REASON FOR ADMISSION: Hydropic gallbladder with gallstones and possible fecal impaction with inflammation. HISTORY OF PRESENT ILLNESS: This 86-year-old white woman has significant dementia and is bedridden and managed by her daughter, who cares for her at home. Approximately 3 days ago, she had the onset of nausea and vomiting, but she has had diarrhea since that time. She has had intermittent left abdominal pain. Her mental status was considered diminished from her usual baseline and on that basis, she presented to the emergency room where she was evaluated by Dr. Palma. She had no specific obvious finding of concern. Lab studies showed normal white count of 9.1 and normal electrolytes and liver enzymes also normal. A chest x-ray showed no evidence of pneumonia. A CT scan of the abdomen and pelvis showed a distended gallbladder with gallstones and mild gallbladder wall thickening. Bilateral renal pelvis thickening and ureteral edema were noted, but no evidence of stone. There was a fair amount of stool in the rectum with wall thickening and perirectal fat stranding concerning for stercoral proctitis. There is a small bowel containing left inguinal hernia without sign of obstruction. I agreed to admit her for further evaluation and care. It is notable that she was admitted to the hospitalist service in early March by Dr. Reid. At that time, she was noted to have urinary tract infection with multi-drug resistant E. coli. She presented with somnolence and mental status changes at that time. Intravenous antibiotics were administered, but she did have a multi-resistant strain. She was sensitive to cefepime, ceftriaxone, ertapenem, gentamicin, imipenem, and meropenem, but resistant to other antibiotics. The patient was admitted directly to my service and through the night has done reasonably well. She says she feels better today. Medications given in the emergency room included ceftriaxone. At present, the patient says she feels better. Does not have description of severe abdominal pain particularly. Denies any rectal pain. PHYSICAL EXAMINATION: GENERAL: A pleasant white woman, who does obviously have dementia, but is interactive and relational in large part. ORAL: Mucous membranes are slightly dry. NECK: Trachea is midline. CHEST: Clear. Electronically Signed By: DONNA DEAN MD 04/28/172040 PATIENT NAME: RENETTA BASS HISTORY AND PHYSICAL DATE OF : 32 PHYSICIAN: DONNA DEAN MD REPORT #: [id number] REPORT IS CONFIDENTIAL AND NOT TO BE RELEASED WITHOUT AUTHORIZATION [facility] [address], [place] [address] Signed HEART: Regular. ABDOMEN: Not particularly distended. There may be mild tenderness in the upper abdomen, but certainly no focal mass or severe tenderness. EXTREMITIES: Show no clubbing, cyanosis, or edema. RECTAL: Showed a very large rectal vault. There is soft stool at the apex of the rectosigmoid area. I detect no mass. Stool is of normal color. Sphincter tone is normal for age. LABORATORY STUDIES: Show white count of 9.1 and hematocrit 39.8. Chem profile normal as described. Lactic acid 0.5. Coag studies showed a pro-time of 13.6 with an INR of 1. Urinalysis showed turbid urine, urine nitrite positive, leukocyte esterase 500, white cells greater than 50 per high-powered field, bacteria 4+. ASSESSMENT: The patient is noted to have a hydropic gallbladder and gallstones, which is indicative of acute cholecystitis problems generally speaking. Additionally, she has probably recurrent or persistent urinary tract infection. The issue regarding the fecal stool load and possible thickening and stranding of the rectum is notable, but I do not see sign of firm hard impaction at this point. She is admitted for further evaluation and care to include IV antibiotics. Urine culture will be pending. We will continue with ceftriaxone for the time being. We will review with her daughter, who is her guardian essentially the factors involved. She may ultimately require cholecystectomy. For now, fluid resuscitation, urinary tract infection treatment and so forth would be most appropriate in the short-term. She may require additional interventions before consideration of operative intervention for the gallbladder. Donna Dean MD /MODL /[id number] Electronically Signed By: DONNA DEAN MD 04/28/172040 PATIENT NAME: RENETTA BASS HISTORY AND PHYSICAL DATE OF : 32 PHYSICIAN: DONNA DEAN MD REPORT #: [id number] REPORT IS CONFIDENTIAL AND NOT TO BE RELEASED WITHOUT AUTHORIZATION [address] [address] Signed cc: MD Joyce Becerra MD Electronically Signed By: DONNA DEAN MD 04/28/17 2041 PATIENT NAME: RENETTA BASS HISTORY AND PHYSICAL DATE OF : 32 PHYSICIAN: DONNA DEAN MD REPORT #: [id number] REPORT IS CONFIDENTIAL AND NOT TO BE RELEASED WITHOUT AUTHORIZATION
--- NOTE | 2017-04-28 22:05 | NUR ---
PT REPOSITIONED IN BED ONTO LEFT SIDE. WILL CONTINUE TO MONITOR.
--- NOTE | 2017-04-29 00:30 | NUR ---
PT REPOSITIONED ONTO RIGHT SIDE AT THIS TIME. ATTENDS DRY. 2L O2 IN PLACE, WILL CONTINUE TO MONITOR.
--- NOTE | 2017-04-29 02:15 | NUR ---
PT INCONTINENT OF URINE, PERICARE AND NEW ATTENDS PROVIDED. REDDENED AREA TO COCCYX, BLANCHABLE. PT REPOSITIONED IN BED, FLAT AT THIS TIME. JAIDA EMPTIED AT THIS TIME OF 60ML SEROSANGUINOUS FLUID. STERISTRIPS TO LAP SITE INTACT. PT REMAINS ON 2L O2 VIA NC. TELE D/C'D PER DR. PALACIOS.
--- NOTE | 2017-04-29 05:10 | NUR ---
PT INCONTINENT OF URINE, NEW ATTENDS AND CHUX IN PLACE. PT TOLERATED WELL, DOES NOT APPEAR IN ANY DISTRESS. 2L O2 VIA NC IN PLACE. IV INFUSING WNL. PILLOW UNDER RIGHT SIDE. WILL CONTINUE TO MONITOR.
--- NOTE | 2017-04-29 05:11 | NUR ---
PT SLEPT MAJORITY OF SHIFT, TOLERATED BEING REPOSITIONED IN BED, DID NOT APPEAR IN ANY DISTRESS. DROWSY AT TIMES, SPEECH HAS BEEN INCOMPREHENSIBLE FOR MOST OF THE NIGHT. LUNGS CLEAR, DIM, 2L O2 VIA NC. HR IRREGULAR, TELE D/C'D. BOWEL TONES ACTIVE, NO EMESIS. LAP SITES WITH STERI STRIPS INTACT. JAIDA TO RLQ DRAINING SEROSANGUINOUS FLUID THAT LOOKS MORE SEROUS THIS MORNING, DRESSING TO SITE IS C/D/I. SCD'S AND HEEL PROTECTORS. IV PATENT, D5LR @85. INCONTINENT OF URINE, ATTENDS IN PLACE, NO BM DURING THIS SHIFT. VSS. FRAGILE SKIN WITH SCATTERED BRUISES AND ABRASIONS.
--- NOTE | 2017-04-29 06:07 | NUR ---
ATTEMPTED TO GIVE PT HER LEVOTHYROXINE, HOWEVER PT WILL NOT FOLLOW COMMANDS TO TAKE PILL OR EVEN TO TAKE A DRINK OF WATER. MEDICATION HELD AT THIS TIME.
--- NOTE | 2017-04-29 06:51 | NUR ---
CHECKED ATTENDS, DRY AT THIS TIME. HIPS FLOATING AT THIS TIME.
--- NOTE | 2017-04-29 07:04 | NUR ---
RECIEVED BEDSIDE REPORT FROM KATIE MUELLER. PT SLEEPING, BREATHING EVEN AND UNLABORED. BED ALARM ON. PT APPEARS COMFORTABLE.
--- NOTE | 2017-04-29 07:08 | NUR ---
RECIEVED BEDSIDE REPORT FROM KATIE ORTIZ. PT IN BED WITH EYES OPEN, INCOHERANT MUMBLING. PT APPEARS COMFORTABLE. O2 IN PLACE AT 2L.
--- NOTE | 2017-04-29 07:35 | NUR ---
marta is sleeping, i updated her board, and i ordered her brekfast, will help her eat when her tray comes.
--- NOTE | 2017-04-29 09:19 | NUR ---
PT UP TO CHAIR VIA CHOLO LIFT. PT TOLERATED WELL. EATING BREAKFAST WITH ASSIST FROM REPAIR CAMERAMAN. FOAM PLACED ON RED, BLANCHABLE AREA ON BUTTOCK. IV SITE INFILTRATED, WILL REPLACE AFTER BREAKFAST. IV MEDS DELAYED DUE TO LACK OF IV. AM CARES DONE. PT IN CHAIR WITH CALL LIGHT IN REACH.
--- NOTE | 2017-04-29 10:12 | NUR ---
WE GOT HER UP IN HER CHAIR AND PUT IN HER DENTURES AND I FED HER HER BREAKFAST, SHE SAID SHE WAS IN PAIN AND THE NURSE GAVE HER SOME MEDS. SHE IS CURRENTLY RESTING.
--- NOTE | 2017-04-29 10:14 | NUR ---
PT HAS NEW IV IN LEFT FOREARM ON SECOND ATTEMPT. PT TOLERATED PROCEDURE WELL. IV MEDS NOW GIVEN. PT STILL UP IN CHAIR.
--- NOTE | 2017-04-29 14:47 | NUR ---
KATARINA AND I HOYERED THE PATIENT A LITTLE BIT ABOVE THE CHAIR CLEANED AND CHANGED HER ALSO PUT BARRIER CREAM THAN HOYERED HER BACK DOWN IN THE CHAIR. IS SLEEPING.
--- NOTE | 2017-04-29 14:47 | NUR ---
ROUNDED WITH DR DEAN. PLAN IS TO DISCHARGE TOMORROW. ATTEMPTED CONTACT WITH PT'S DAUGHTER, NO CONTACT MADE THERE IS NO ID ON THE VOICEMAIL. WILL ATTEMPT CONTACT LATER. PT HAS BEEN CHANGED, UP IN CHAIR PER HER REQUEST.
--- NOTE | 2017-04-29 17:19 | NUR ---
PT MORE LUCID THIS SHIFT, ALTHOUGH STILL DROWSY. PT HOYERED TO CHAIR MOST OF THE DAY PER HER REQUEST. DRESSINGS C/D/I. JAIDA DRAIN DRAINING SEROUS FLUID. REQUIRES FEEDING ASSISTANCE. VOIDING QS. INCONT, ATTEND IN PLACE. NEW IV PLACED D/T INFILTRATION.
--- NOTE | 2017-04-29 17:57 | NUR ---
SPOKE WITH PT'S DAUGHTER WHEN SHE WAS IN ROOM. DISCUSSED PLAN TO D/C TOMORROW ON ORAL ANTIBIOTICS AND JAIDA DRAIN. DAUGHTER WOULD LIKE JAIDA DRAIN D/C PRIOR TO DISCHARGE DUE TO DIFFICULTY GETTING PT TO FOLLOW UP APPTS. PT WILL NEED NON-EMERGENT TRANSPORT HOME.
--- NOTE | 2017-04-29 19:05 | NUR ---
PATIENT RECIEVED A LATE DINNER, I FED HER THEN CHANGED HER SHE WANTS TO STAY IN THE CHAIR FOR NOW.
--- NOTE | 2017-04-29 19:10 | NUR ---
BEDSIDE SHIFT REPORT RECEIVED FROM KATIE BRAY. PT IS CURRENTLY SITTING UP IN CHAIR ON RA. IV INFUSING D5LR @85. PT TALKATIVE, HAS CALL LIGHT WITHIN REACH.
--- NOTE | 2017-04-29 20:40 | NUR ---
ASSESSMENT COMPLETED. PT IS ALERT, ORIENTED ONLY TO SELF. REPORTS 8/10 ABDOMINAL PAIN, 2 TABS NORCO GIVEN. LUNGS CLEAR, DIM IN BASES, RA. HR IRREGULAR. BOWEL TONES ACTIVE, DENIES NAUSEA. PT SITTING UP IN CHAIR, WAS INCONTINENT OF URINE, USED CHOLO TO CHANGE ATTENDS AND PROVIDE PERICARE. PT DOES NOT WANT TO GET INTO BED, REPOSITIONED HER IN THE CHAIR. IV PATENT, INFUSING WNL. SKIN FRAGILE, SCATTERED BRUISES. CALL LIGHT IS WITHIN REACH, PT IN VIEW OF NURSES' STATION. WILL CONTINUE TO MONITOR.
--- NOTE | 2017-04-29 22:24 | NUR ---
PT MOVED FROM CHAIR TO BED VIA CHOLO. PT INCONTINENT OF URINE, NEW ATTENDS AND PERICARE PROVIDED. HIPS FLOATED ON PILLOWS. CALL LIGHT WITHIN REACH, WILL CONTINUE TO MONITOR.
--- NOTE | 2017-04-29 22:43 | NUR ---
PT APPEARS TO BE SLEEPING, NO APPARENT DISTRESS. RESPIRATIONS EVEN AND UNLABORED, RR:16. WILL CONTINUE TO MONITOR.
--- NOTE | 2017-04-30 01:03 | NUR ---
PILLOW REMOVED FROM UNDER LEFT HIP. CHECKED ATTENDS, DRY AT THIS TIME. NO APPARENT DISTRESS. RESPIRATIONS EVEN AND UNLABORED, RR:16. IV INFUSING WNL. WILL CONTINUE TO MONITOR.
--- NOTE | 2017-04-30 02:00 | NUR ---
PT INCONTINENT OF URINE, NEW ATTENDS AND PERICARE PROVIDED. ASSESSMENT COMPLETED. DENIES PAIN, NO CHANGES FROM PREVIOUS ASSESSMENT. REPOSITIONED PT IN BED, FLAT AT THIS TIME WITH PILLOWS UNDER ELBOWS. WILL CONTINUE TO MONITOR.
--- NOTE | 2017-04-30 04:01 | NUR ---
REPOSITIONED PT IN BED SO THAT BILATERAL HIPS ARE FLOATED ON PILLOWS. CHECKED ATTENDS, DRY AT THIS TIME. PT DENIES PAIN. IV PATENT, INFUSING WNL. WILL CONTINUE TO MONITOR.
--- NOTE | 2017-04-30 04:52 | NUR ---
PT SLEPT MAJORITY OF SHIFT. PT HAD PAIN AT THE START OF SHIFT WHICH WAS RELIEVED WITH 2 NORCO. RA, LUNGS CLEAR. BOWEL TONES ACTIVE, NO NAUSEA. STERI STRIPS TO LAP SITES INTACT. JAIDA DRAINING SMALL AMOUNT OF SEROSANGUINOUS FLUID, SHADOWING NOTED ON DRESSING, LINE STRIPPED. INCONTINENT OF URINE, FREQUENT CHECKS, ATTENDS IN PLACE. ALLEVYN TO COCCYX C/D/I. TURN Q2. SCD'S AND HEEL PROTECTORS. ORIENTED TO SELF ONLY. IV PATENT, D5LR @85, IV ABX: ROCEPHIN. REQUIRES ASSISTANCE WITH FEEDING.
--- NOTE | 2017-04-30 06:30 | NUR ---
PT INCONTINENT OF URINE, NEW ATTENDS AND PERIPAD IN PLACE. PT REPOSITIONED ONTO LEFT SIDE. PT DENIES PAIN AT THIS TIME. WILL CONTINUE TO MONITOR.
--- NOTE | 2017-04-30 07:15 | NUR ---
RECIEVED BEDSIDE REPORT FROM KATIE ORTIZ. PT IS AWAKE AND ALERT, STATED SHE'S "JUST LISTENING TO EVERYTHING". PT REPORTED MINOR PAIN AND READY FOR ONE NORCO.
--- NOTE | 2017-04-30 07:55 | NUR ---
PATIENT IS IN BED, WE WILL MOVE HER TO THE CHAIR VIA CHOLO AND I WILL HELP HER EAT HER BREAKFAST.
--- NOTE | 2017-04-30 08:54 | NUR ---
helped patient et breakfast, made her some tea, she ate all her breakfast.
--- NOTE | 2017-04-30 09:09 | NUR ---
PT HOYERED TO CHAIR. ATTEND CHANGED. ASSISTED WITH BREAKFAST, ATE 80%.
--- NOTE | 2017-04-30 13:23 | NUR ---
PT IS AWAKE, ORIENTED TO SELF ONLY. WILL ANSWER QUESTIONS APPROPRIATELY, BUT CANNOT CARRY ON A CONVERSATION. EATS WELL WITH ASSISTANCE. UP IN CHAIR.
--- NOTE | 2017-04-30 15:01 | NUR ---
CALLED PT'S DAUGHTERCINTIA TO ADVISE THAT PT PT WILL NOT BE GOING HOME TODAY. WAITING FOR THE [facility] CULTURE TO COME BACK. DAUGHTER WILL BE UP TOMORROW, WOULD LIKE A CALL TOMORROW PRIOR TO DISCHARGE.
--- NOTE | 2017-04-30 15:04 | NUR ---
ROUNDED WITH DR. DEAN. DOCTOR REMOVED THE JAIDA DRAIN, COVERED WITH BANDAID. JAIDA DRAINING SEROUS FLUID.
--- NOTE | 2017-04-30 18:25 | NUR ---
PT HAD JAIDA DRAIN REMOVED. MUCH MORE TALKITIVE, ORIENTED TO SELF ONLY. NON-EMERGENT TRANSPORT NEEDED FOR D/C, POSSIBLY TOMORROW AFTER C&S RETURNS. INCONT OF URINE, NO BM THIS SHIFT. EATING AND DRINKING WELL WITH FEEDER. UP TO CHAIR MOST OF DAY.
--- NOTE | 2017-04-30 19:06 | NUR ---
RECEIVED REPORT FROM RN. PATIENT RESTING COMFORTABLY IN BED. CALL LIGHT MORGAN CHIRINOS.
--- NOTE | 2017-04-30 21:13 | NUR ---
PATIENT RESTING COMFORTABLY IN BED. DENIES PAIN AND HAS NO NEEDS AT THIS TIME. MEDICATIONS GIVEN AND ASSESSMENT DONE. REPOSITIONED PATIENT WITH ASSISTANCE OF MARLEN ALVAREZ. CALL LIGHT WITHIN REACH.
--- NOTE | 2017-04-30 22:27 | NUR ---
PATIENT IS RESTING COMFORTABLY IN BED, BREATHING IS EVEN AND UNLABORED. PATIENT REPOSITIONED ON LEFT SIDE, PROVIDED SIPS OF WATER. SHE DENIES FURTHER NEEDS AT THIS TIME. CALL LIGHT WITHIN REACH.
--- NOTE | 2017-05-01 00:08 | NUR ---
PATIENT RESTING COMFORTABLY IN BED, BREATHING IS EVEN AND UNLABORED. PROVIDED SIPS OF WATER, REPOSITIONED. CALL LIGHT WITHIN REACH.
--- NOTE | 2017-05-01 02:13 | NUR ---
PATIENT REPOSITIONED, ATTENDS REPLACED, TESSA CARE PERFORMED. SHE DENIES NEEDS AT THIS TIME, SIPS OF WATER GIVEN. ASSESSMENT DONE, CALL LIGHT WITHIN REACH.
--- NOTE | 2017-05-01 04:14 | NUR ---
PATIENT REPOSITIONED, OFFERED SIPS OF WATER. DENIES OTHER NEEDS AT THIS TIME. CALL LIGHT WITHIN REACH.
--- NOTE | 2017-05-01 04:52 | NUR ---
PATIENT'S NIGHT WAS UNEVENTFUL. SHE HAS BEEN RESTING COMFORTABLY IN BED THROUGHOUT SHIFT. VSS, NO COMPALINTS OF PAIN. SHE IS A Q2H TURN, IS BEDBOUND, AND HAS IV FLUIDS RUNNING. NO ACUTE CHANGES FROM BEGINNING OF SHIFT ASSESSMENT.
--- NOTE | 2017-05-01 05:44 | NUR ---
PATIENT RESTING COMFORTABLY IN BED. REPOSITIONED, GAVE MORNING MEDICATION WITH SIPS OF WATER. ATTENDS CHANGED WITH HELP FROM MARLEN ALVAREZ. DENIES NEEDS AT THIS TIME. CALL LIGHT WITHIN REACH.
--- NOTE | 2017-05-01 07:14 | NUR ---
RECIEVED BEDSIDE REPORT FROM KATIE BENSON. PT SLEEPING SOUNDLY, BREATHING EVEN AND UNLABORED. D5LR RUNNING AT 85ML/HR. NO BM OVERNIGHT.
--- NOTE | 2017-05-01 12:54 | NUR ---
HELPED PATIENT EAT LUNCH.
[2017-05-01] MEDS ORDERED: DOXYCYCLINE HY100 MG PO (14:49)
[2017-05-01] MEDS ORDERED: MAPAP325 MG PO (14:50)
--- NOTE | 2017-05-01 15:22 | NUR ---
ADVISED PT'S DAUGHTER THAT SHE WILL BE DISCHARGED. DAUGHTER WILL BE UP TO THE HOSPITAL TO DISCUSS DISCHARGE INSTRUCTIONS. CASE MANAGEMENT IS ARRIANGING NON-EMERGENT TRANSPORT.
--- NOTE | 2017-05-01 16:06 | NUR ---
KATARINA AND I CHOLO HER FROM THE BED TO HER CHAIR.
--- NOTE | 2017-05-01 16:08 | NUR ---
AROUND DEEDEE BRAY AND I CHANGED HER IN THE CHAIR.
--- NOTE | 2017-05-01 16:09 | NUR ---
KATARINA AND I HOYERED HER BACK TO BED CHANGED HER AND GOT HER DRESSED FOR HER TO GO HOME NOW WE ARE WAITING ON HER RIDE. IT IS NOW 1611.
--- NOTE | 2017-05-01 16:22 | NUR ---
PT LEFT THE FLOOR VIA EMS NON-EMERGENT TRANSPORT AT 1622. PT COMFORTABLE AND PAPERWORK WAS SENT WITH EMS.
--- NOTE | 2017-05-02 10:18 | OR ---
[facility] [address], [place] [address] Signed DATE OF OPERATION: 04/28/2017 SURGEON: Donna Dean MD PREOPERATIVE DIAGNOSES: 1. Acute calculus cholecystitis with hydropic gallbladder including stones. 2. Medical problems including dementia. POSTOPERATIVE DIAGNOSES: 1. Acute calculus cholecystitis with hydropic gallbladder including stones. 2. Medical problems including dementia. PROCEDURES: 1. Laparoscopic cholecystectomy with intraoperative cholangiogram. 2. Surgeon-directed fluoroscopy. ANESTHESIA: General endotracheal. Cookie alejandro CRNA Local 10 mL of 0.25% Marcaine with epinephrine. INDICATIONS: This 86-year-old white woman has significant dementia and lives with her daughter, who takes good care of her. She was admitted through the emergency room late last night with complaints of nausea, more disorientation than usual and previous vomiting. She had been hospitalized a few weeks ago for a multi-drug resistant E. coli urinary tract infection. She incidentally was noted to have a urinary tract infection again at this time. At that time, she was managed by Dr. Reid. A CT scan was obtained of the abdomen during her emergency room evaluation, which showed a senescent liver and a hydropic gallbladder with radiopaque stones. Ultrasound was additionally performed confirming gallstones without gallbladder wall thickening, but with a positive sonographic Miller's sign and mild hydrops. The common bile duct was nondilated measuring 6 to 7 mm. The liver was homogeneous. The patient was also noted on CT scan to have findings of some fecal impaction and question of thickening of the rectal wall, and concern maintained for possible beginning of stercoral ulcer. She has undergone enema therapy since her admission under my direction, and rectal examination shows no such finding that I can tell. I have discussed with her daughter, who is her guardian essentially the particulars of Electronically Signed By: DONNA DEAN MD 05/02/17 1018 PATIENT NAME: RENETTA BASS OPERATIVE REPORT DATE OF : 32 PHYSICIAN: DONNA DEAN MD REPORT #: [id number] REPORT IS CONFIDENTIAL AND NOT TO BE RELEASED WITHOUT AUTHORIZATION [facility] [address], [place] [address] Signed her situation and recommendation is made for cholecystectomy for acute calculous hydropic gallbladder. The risks of bleeding, infection, bile duct injury, need for open procedure, failure to cure her symptoms and other unforeseen complications were all reviewed in detail. She understands and wishes to proceed. FINDINGS: Indeed the gallbladder was markedly distended and dilated and did require decompression. There were omental adhesions adherent to the gallbladder. The liver itself was senescent and with a floppy medial segment of the left lobe of the liver. There were 3 large gallstones within the gallbladder. The mucosa was completely atrophic and chronically inflamed. There was no sign of neoplasm. Cholangiogram showed somewhat dilated biliary tree, but with emptying of contrast into the duodenum. Additional views were taken showing the cystic duct likely entered the right hepatic duct. No injury to the right hepatic duct occurred. She tolerated the procedure well. DESCRIPTION OF PROCEDURE: The patient was brought to the operating room, given a general endotracheal anesthetic. Preoperative antibiotic Ancef was given, though she was already on ceftriaxone related to her urinary tract infection. After satisfactory general endotracheal anesthesia, the abdomen was prepared with chlorhexidine solution and draped sterilely. A supraumbilical incision was made avoiding the low midline laparotomy incision from the past. The abdomen was entered without problem. Pneumoperitoneum was achieved to a level of 14 mmHg of carbon dioxide gas after securing a John cannula with a John technique. Intraabdominal inspection showed no sign of ascites or carcinomatosis. A senescent liver was noted with some persistent lobulations of the medial segment of the left lobe of the liver. The distended gallbladder was quite obvious. Three additional trocars were placed in usual configuration in the subxiphoid, right midclavicular, and right anterior axillary line. The gallbladder was not easily able to grasp the very distended gallbladder. On that basis, a laparoscopic needle trocar was used to decompress the gallbladder and the puncture site grasped with the clamp. The gallbladder was elevated cephalad, and using blunt dissection primarily of the adherent omentum was stripped from the gallbladder down to the infundibulum. The infundibulum was grasped and retracted laterally. The medial segment of the liver was somewhat obscuring and with various maneuvers, safe dissection could be undertaken dissecting free the triangle of Calot. Clips were applied to the cystic arterial branches in this region. Ultimately, the cystic duct was clipped at the gallbladder cystic duct junction and a transverse choledochotomy made the cystic duct. Egress of clear bile was noted. Using an Ghosh-type cholangiocatheter, intraoperative cholangiography was undertaken. Free flow of contrast was noted into the biliary tree, but dilation of the common hepatic and common bile duct and some delay of emptying into the duodenum, but it did occur. There was no sign of obstructing neoplasm or stone that could be told. The entry point Electronically Signed By: DONNA DEAN MD 05/02/17 1018 PATIENT NAME: RENETTA BASS OPERATIVE REPORT DATE OF : 32 PHYSICIAN: DONNA DEAN MD REPORT #: [id number] REPORT IS CONFIDENTIAL AND NOT TO BE RELEASED WITHOUT AUTHORIZATION [facility] [address], [place] [address] Signed of the cystic duct was somewhat obscured and on that basis, a different angle was taken with the fluoroscope allowing for visualization of the cystic duct, probably entering into a right hepatic duct after all. The catheter was removed the cystic duct was doubly clipped and divided under direct visualization. The gallbladder was dissected free in a retrograde fashion using electrocautery. Gallbladder was placed in an Endobag and extracted through the supraumbilical port site, opened on the back table and found to have pale atretic mucosa of the gallbladder, 3 large black round gallstones. Irrigation was undertaken in subhepatic space. There was no sign of bile leak, bleeding, or other problem. Through right-sided trocar site, a 7 mm flat Giovani drain was placed in the subhepatic space given the extent of dissection and slightly dilated bile ducts noted on the cholangiogram. Then secured the skin with nylon suture and attached to bulb suction. The trocars were removed under direct visualization showing no sign of bleeding. The infraumbilical fascial incision reapproximated with interrupted 0 Vicryl suture. All wounds were copiously irrigated with saline solution. Skin was closed with interrupted 3-0 Vicryl. 10 mL of 0.25% Marcaine with epinephrine was injected into the trocar sites. The patient was ultimately extubated and transported to recovery in good condition having suffered no complications. Sponge, needle, and counts reported as correct x3. Donna Dean MD /MICKEYL /[id number] cc: MD Francisco Grove DO Electronically Signed By: DONNA DEAN MD 05/02/17 1018 PATIENT NAME: RENETTA BASS OPERATIVE REPORT DATE OF : 32 PHYSICIAN: DONNA DEAN MD REPORT #: [id number] REPORT IS CONFIDENTIAL AND NOT TO BE RELEASED WITHOUT AUTHORIZATION [address] [address] Signed Ronaldo Reid MD Electronically Signed By: DONNA DEAN MD 05/02/17 1018 PATIENT NAME: RENETTA BASS OPERATIVE REPORT DATE OF : 32 PHYSICIAN: DONNA DEAN MD REPORT #: [id number] REPORT IS CONFIDENTIAL AND NOT TO BE RELEASED WITHOUT AUTHORIZATION
--- NOTE | 2017-05-04 09:32 | DS ---
[facility] [address], [place] [address] Signed ADMISSION DATE: 04/27/2017 DISCHARGE DATE: 05/01/2017 REASON FOR ADMISSION: This is an 86-year-old white woman has significant dementia and is bedridden and managed by her daughter who cares for her at home. Three days prior to admission, she had the onset of nausea and vomiting, and she has had diarrhea from time to time. She has had intermittent left abdominal pain. Her mental status declined enough that concern was maintained that there may be some problem not recognized by her daughter. Of note, she was treated for a multi-drug resistant E. coli in the past including with Bactrim antibiotic, but did require a prolonged hospitalization for that problem in the past. She presented to the emergency room where she was evaluated by Dr. Palma. An abnormal urinalysis was confirmed. LABORATORY DATA: White count was normal at 9.1. Liver enzymes and electrolytes were normal. Chest x-ray showed no sign of pneumonia. A CT scan of the abdomen and pelvis showed a distended gallbladder with gallstones and gallbladder wall thickening. There is bilateral renal pelvis thickening and ureteral edema also, but no evidence of stone. There was a fair amount of stool in the rectosigmoid and thickening with perirectal fat suggestive of possible stercoral proctitis. She is admitted for further evaluation and care. PERTINENT PHYSICAL EXAMINATION: GENERAL: Showed a pleasant white woman who is not obviously with dementia, but was interactive and relational in large part. HEENT: Mucous membranes are slightly dry. Trachea midline. CHEST: Clear. HEART: Regular without murmur. ABDOMEN: Not distended. There is mild tenderness in the upper abdomen, but not focal. There is no ascites. EXTREMITIES: Showed no clubbing, cyanosis, or edema. RECTAL: Showed a large rectal polyp. There was some soft stool at the apex of the rectosigmoid, but no distinct mass. HOSPITAL COURSE: She underwent fluid resuscitation as well as intravenous antibiotic administration. Her urinalysis was noted to be abnormal as well and a high chance of recurrent or persistent E. coli urinary tract infection was noted. Broad-spectrum antibiotics were used and enema therapy undertaken. I spoke with her daughter, Teresa Huerta and had the patient to undergo enema therapy, which seemed to clear the rectum clinically quite well. I had recommended cholecystectomy preferred by laparoscopic approach. On April 28, 2017, she Electronically Signed By: DONNA DEAN MD 05/04/17 0932 PATIENT NAME: RENETTA BASS DISCHARGE SUMMARY DATE OF : 32 PHYSICIAN: DONNA DEAN MD REPORT #: [id number] REPORT IS CONFIDENTIAL AND NOT TO BE RELEASED WITHOUT AUTHORIZATION [facility] [address], [place] [address] Signed underwent laparoscopic cholecystectomy with intraoperative cholangiogram. She is noted to have an acutely inflamed gallbladder with hydrops including stones. Cholangiogram was notable for somewhat dilated ducts, but no evidence of obstruction in the common bile duct itself. A drain was placed, as the operation was slightly complex given her distended gallbladder. Postoperatively, she had progressive recovery. Evaluation by Dr. Reid, hospitalist, who was familiar with her past urinary tract infection confirmed that she did have again a urinary tract infection with E. coli, which was multi-drug resistant, but to our great amazement and delight susceptible to doxycycline. On that basis, doxycycline was initiated. By the time of discharge, the drain that had been placed has been removed. She is tolerating a regular diet. It is much more to her usual self as regards to personality and interactions and showing no evidence of sepsis or other problem. DISCHARGE MEDICATIONS: 1. Doxycycline 100 mg p.o. b.i.d. #20. 2. Tylenol 325 two tabs p.o. q.6 hours p.r.n. pain. She will continue her usual medications includin. Synthroid 25 mcg p.o. daily. 2. Bupropion XL 150 mg p.o. daily. 3. Zantac 150 mg p.o. at bedtime. 4. Lexapro 5 mg p.o. daily. 5. Multivitamin essential with iron one p.o. daily. 6. Seroquel 50 mg tablets p.o. daily. 7. Rosuvastatin calcium 5 mg tablet p.o. at bedtime. 8. Propranolol 80 mg q.24 hours. 9. Omeprazole 20 mg p.o. daily. She will discontinue her Bactrim that was previously used. DISCHARGE DIAGNOSES: 1. Acute calculous cholecystitis with hydrops of gallbladder causing mental status changes and low-grade infection. 2. 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 3. Dementia. 4. Reflux disease. FOLLOWUP PLAN: She is return to see me in approximately a month. She will return to her primary care physician as usual as well. Electronically Signed By: DONNA DEAN MD 05/04/17 0932 PATIENT NAME: RENETTA BASS DISCHARGE SUMMARY DATE OF : 31 PHYSICIAN: DONNA DEAN MD REPORT #: [id number] REPORT IS CONFIDENTIAL AND NOT TO BE RELEASED WITHOUT AUTHORIZATION [facility] [address] [place], [place] [address] Signed MD CESAR Nunez/VILLA /[id number] cc: Ronaldo Reid MD Electronically Signed By: DONNA DEAN MD 05/04/17 0932 PATIENT NAME: RENETTA BASS DISCHARGE SUMMARY DATE OF : 31 PHYSICIAN: DONNA DEAN MD REPORT #: [id number] REPORT IS CONFIDENTIAL AND NOT TO BE RELEASED WITHOUT AUTHORIZATION
== END 2017-05-01 16:22 | disposition home or self-care (01) | DRG 418 ==
LOC: ED 22:24 → MS 04-28 03:00
PROVIDERS: ADMIT Surgery
PROC: BF03YZZ Plain Radiography of Gallbladder and Bile Ducts using Other Contrast (ICD-10-PCS; 2017-04-28)
PROC: 0FT44ZZ Resection of Gallbladder, Percutaneous Endoscopic Approach (ICD-10-PCS; principal; 2017-04-28 15:05)
DX: K80.00 Calculus of gallbladder with acute cholecystitis without obstruction (principal); N39.0 Urinary tract infection, site not specified; F03.90 Unspecified dementia, unspecified severity, without behavioral disturbance, psychotic disturbance, mood disturbance, and anxiety; K21.9 Gastro-esophageal reflux disease without esophagitis; B96.20 Unspecified Escherichia coli [E. coli] as the cause of diseases classified elsewhere; I11.0 Hypertensive heart disease with heart failure; I50.9 Heart failure, unspecified; E78.5 Hyperlipidemia, unspecified; I48.91 Unspecified atrial fibrillation; E03.9 Hypothyroidism, unspecified; Z90.710 Acquired absence of both cervix and uterus; Z88.2 Allergy status to sulfonamides; Z85.828 Personal history of other malignant neoplasm of skin
CPT/HCPCS: 00790; 36415; 71010; 74177; 76705; 80053; 81001; 83605; 85025; 85610; 85730; 87040; 87077; 87088; 87186; 88304; 93005; 93010; 94762; J0690; J0696; J1644; J3010; J7040; J7042; J7120; Q9967